=== PATIENT | female | born 1950 | race Caucasian/White ===

== ENCOUNTER → 2024-01-04 09:48 | Outpatient (REF) | payer MEDICARE, OTHER, SELFPAY | LOC: WDC 09:48 | PROVIDERS: ATTENDING PHYSICIAN Internal Medicine | DX: N63.10 Unspecified lump in the right breast, unspecified quadrant (principal); N63.11 Unspecified lump in the right breast, upper outer quadrant | CPT/HCPCS: 76642; 77062; 77066 ==